=== PATIENT | female | born 1990 | race Caucasian/White ===

== ENCOUNTER 2017-05-18 12:57 | Emergency (ER) | payer OTHER ==
[~2017-05-18] VITALS: Ht 170.2 cm; Wt 63.5 kg
[2017-05-18 12:59] VITALS: BP 148/95; PULSE 99; RESP 18; TEMP 98; O2SAT 100
[2017-05-18 13:46] LABS: BASOPHIL % 0.3 % (0.0-2.0); EOSINOPHIL # 0.1 TH/MM3 (0-0.4); EOSINOPHIL % 0.5 % (0.0-4.0); HEMOGLOBIN 13.5 GM/DL (11.6-15.3); LYMPH % 22.2 % (9.0-44.0); LYMPHOCYTE # 2.2 TH/MM3 (1.0-4.8); MEAN CELL VOLUME 85.7 FL (80.0-100.0); MEAN CORPUSCULAR HEMOGLOBIN 30.5 PG (27.0-34.0); MEAN CORPUSCULAR HGB CONC 35.6 % (32.0-36.0); MONOCYTE # 0.6 TH/MM3 (0-0.9); PLATELET COUNT 232 TH/MM3 (150-450); RED BLOOD COUNT 4.43 MIL/MM3 (4.00-5.30); RED CELL DISTRIBUTION WIDTH 12.2 % (11.6-17.2); WHITE BLOOD COUNT 9.9 TH/MM3 (4.0-11.0)
[2017-05-18 14:07] LABS: BICARBONATE 23.7 MEQ/L (21.0-32.0); CALCIUM 8.9 MG/DL (8.5-10.1); CREATININE 0.68 MG/DL (0.50-1.00)
[2017-05-18 14:21] LABS: BILIRUBIN, URINE NEG (NEG); BLOOD, URINE MOD (NEG); GLUCOSE,URINE NEG (NEG); KETONE, URINE NEG (NEG); NITRITE,URINE NEG (NEG); PH, URINE 6.5 (5.0-8.5); SQUAMOUS EPITHELIAL CELL URINE 3 /hpf (0-5); URINE COLOR RED (YELLW/STRAW); URINE LEUKOCYTE ESTERASE NEG (NEG)
[2017-05-18] MEDS ORDERED: PRIL20TA2 PO (14:44)
[2017-05-18] MEDS ORDERED: RANI150T PO (14:44)
[2017-05-18] MEDS ORDERED: PREN29TA PO (14:44)
--- NOTE | 2017-05-18 15:00 | PD ---
HPI . Bleeding in Chief Complaint: Related Problem Time Seen by Provider: 14:31 Travel History International Travel<30 days: No Contact w/Intl Traveler<30days: No Traveled to known affect area: No History of Present Illness HPI This patient presents with chief complaint of bleeding in . She believes that she is about 6 weeks . She states that she has been seen by an fern picker and had a transvaginal ultrasound which showed evidence of but no heart tones. She reports that she is scheduled for another ultrasound in about a week. However, she started bleeding today some cramping. She states that the bleeding was the quantity of a normal menstrual cycle. She states that the bleeding persists. PFSH Past Medical History Medical History: Denies Significant Hx Diminished Hearing: No Immunizations Current: Yes Tetanus Vaccination: Unknown Influenza Vaccination: No ?: Not LMP: 03/22/2017 : 1 Para: 0 Miscarriage: 0 : 0 Past Surgical History Surgical History: No Previous Surgery Social History Alcohol Use: No Tobacco Use: No Substance Use: No Allergies-Medications (Allergen,Severity, Reaction): Coded Allergies: No Known Allergies (Unverified , 05/18/17) Reported Meds & Prescriptions Reported Meds & Active Scripts Active Reported Plus Iron 29-1 mg ( Vit-Iron Carbonyl) 29 Mg Iron-1 Mg Tab 1 Tab PO DAILY Ranitidine (Ranitidine HCl) 150 Mg Tab 150 Mg PO DAILY Prilosec (Omeprazole Magnesium) 20 Mg Tab 1 Tab PO DAILY Review of Systems Except as stated in HPI: all other systems reviewed are Neg Genitourinary: Positive: Pelvic Pain, Vaginal Bleeding Physical Exam Narrative GENERAL: Sitting up on stretcher smiling. SKIN: Warm and dry. Normal color and turgor. HEAD: Normocephalic/atraumatic. EYES: Pupils are equal. Extraocular movements are intact. NECK: Normal range of motion. CARDIOVASCULAR: Regular rate and rhythm. RESPIRATORY: Nonlabored respirations. ABDOMEN: Soft and nontender. MUSCULOSKELETAL: Atraumatic. NEUROLOGICAL: Nonfocal. PSYCHIATRIC: Appropriate mood and affect. Data Data Last Documented VS Vital Signs Date Time Temp Pulse Resp B/P (MAP) Pulse Ox O2 Delivery O2 Flow Rate FiO2 05/18/17 12:59 98.0 99 18 148/95 (112) 100 Room Air Orders Orders Complete Blood Count With Diff (05/18/17 13:09) Basic Metabolic Panel (Bmp) (05/18/17 13:09) Type And Screen (05/18/17 13:09) Complete Rh (05/18/17 13:09) Urinalysis - C+S If Indicated (05/18/17 13:09) Beta Hcg (Quant/Titer) (05/18/17 13:09) Us Pelvis (Ques Pr/Ect)W Trans (05/18/17 14:43) Labs Laboratory Tests Test 05/18/17 13:21 White Blood Count 9.9 TH/MM3 Red Blood Count 4.43 MIL/MM3 Hemoglobin 13.5 GM/DL Hematocrit 38.0 % Mean Corpuscular Volume 85.7 FL Mean Corpuscular Hemoglobin 30.5 PG Mean Corpuscular Hemoglobin Concent 35.6 % Red Cell Distribution Width 12.2 % Platelet Count 232 TH/MM3 Mean Platelet Volume 8.0 FL Neutrophils (%) (Auto) 71.0 % Lymphocytes (%) (Auto) 22.2 % Monocytes (%) (Auto) 6.0 % Eosinophils (%) (Auto) 0.5 % Basophils (%) (Auto) 0.3 % Neutrophils # (Auto) 7.0 TH/MM3 Lymphocytes # (Auto) 2.2 TH/MM3 Monocytes # (Auto) 0.6 TH/MM3 Eosinophils # (Auto) 0.1 TH/MM3 Basophils # (Auto) 0.0 TH/MM3 CBC Comment DIFF FINAL Differential Comment Urine Color RED Urine Turbidity CLOUDY Urine pH 6.5 Urine Specific [place] 1.011 Urine Protein 30 mg/dL Urine Glucose (UA) NEG mg/dL Urine Ketones NEG mg/dL Urine Occult Blood MOD Urine Nitrite NEG Urine Bilirubin NEG Urine Urobilinogen LESS THAN 2.0 MG/DL Urine Leukocyte Esterase NEG Urine RBC /hpf Urine WBC 4 /hpf Urine Squamous Epithelial Cells 3 /hpf Microscopic Urinalysis Comment CULT NOT INDICATED Blood Urea Nitrogen 10 MG/DL Creatinine 0.68 MG/DL Random Glucose 84 MG/DL Calcium Level 8.9 MG/DL Sodium Level 136 MEQ/L Potassium Level 3.7 MEQ/L Chloride Level 103 MEQ/L Carbon Dioxide Level 23.7 MEQ/L Anion Gap 9 MEQ/L Estimat Glomerular Filtration Rate 105 ML/MIN Human Chorionic Gonadotropin, Quant 25103 MIU/ML MDM Medical Decision Making Medical Screen Exam Complete: Yes Emergency Medical Condition: Yes Differential Diagnosis Differential diagnosis of bleeding in includes but is not limited to physiologic bleeding, spontaneous AB, ectopic , placenta previa Narrative Course This patient presents with a chief complaint of bleeding in early . Blood type is O+. quant 28,915 CBC & BMP Diagram 05/18/17 13:21 Calcium Level 8.9 Transvaginal ultrasound is pending. Last Impressions Pelvis Ultrasound 05/18/17 1443 Signed Impressions: Service Date/Time: Thursday, May 18, 2017 15:29 - CONCLUSION: 1. Solitary intrauterine gestation. Age by crown-rump length is 6 weeks one day. heart rate 122 beats per minute. 2. Small subchorionic hemorrhage. 3. 2.3 cm simple cyst involving the right ovary. Rickie Cruz Jr., MD She'll be discharged with instructions to follow up with her OB Diagnosis Primary Impression: Bleeding in early Patient Instructions: General Instructions, Threatened Miscarriage (DC) Disposition: 01 DISCHARGE HOME Condition: Stable Rebeka Mueller MD May 18, 2017 15:00
--- NOTE | 2017-05-18 16:22 | RADRPT ---
EXAM DATE/TIME: 05/18/2017 15:29 [facility] COMPARISON: No previous studies available for comparison. INDICATIONS : Bleeding in . LAB(S): Beta-hC,915 MEDICAL HISTORY : . SURGICAL HISTORY : None. ENCOUNTER: Initial ACUITY: 1 day PAIN SCORE: 3/10 LOCATION: Bilateral pelvis MEASUREMENTS: UTERUS: 7.5 x 3.9 x 5.6 cm ENDOMETRIAL STRIPE: 8 mm RIGHT OVARY: 4.6 x 1.8 x 1.5 cm LEFT OVARY: 3.6 x 2.0 x 1.5 cm FREE FLUID: No CROWN RUMP LENGTH: 0.5 cm = 6 WKS 1 DAYS FHR: 122 BPM FINDINGS: UTERUS: A single intrauterine gestation. A well-formed gestational sac and no exact observed. pole appr eciated with crown-rump length 0.5 cm which equals 6 weeks one day gestational age. heart rate 122 beats per minute. There is decreased echogenicity seen consistent with small subchorionic hemorrh age. It measures approximately 2.5 cm in greatest dimension. There is a 1.1 cm cystic structure assoc iated with the lower uterine segment felt to relate to a simple cyst. RIGHT OVARY: A 2.3 cm simple cyst is seen involving the right ovary. LEFT OVARY: Ovary contains no mass or significant cystic lesion. MISCELLANEOUS: No free fluid. CONCLUSION: 1. Solitary intrauterine gestation. Age by crown-rump length is 6 weeks one day. heart rate 122 beats per minute. 2. Small subchorionic hemorrhage. 3. 2.3 cm simple cyst involving the right ovary. Rickie Cruz Jr., MD on May 18, 2017 at 16:16 Board Certified Radiologist. This report was verified electronically.
[2017-05-18 17:03] VITALS: BP 130/72
== END 2017-05-18 17:10 | disposition home or self-care (01) ==
LOC: NEPD 12:57
DX: O20.9 Hemorrhage in early pregnancy, unspecified (principal); O34.81 Maternal care for other abnormalities of pelvic organs, first trimester; N83.201 Unspecified ovarian cyst, right side; Z3A.01 Less than 8 weeks gestation of pregnancy; Z79.899 Other long term (current) drug therapy
CPT/HCPCS: 76700; 76817; 80048; 81001; 84702; 85025; 86850; 86900; 86901; 99284